=== PATIENT | male | born 1990 | race Caucasian/White ===

== ENCOUNTER 2021-05-03 14:00 | Emergency (ER) | payer OTHER, SELFPAY ==
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
[2021-05-03 14:16] VITALS: BP 149/89; PULSE 91; RESP 20; TEMP 37.7; O2SAT 96
[2021-05-03] MEDS: TETANUS,DIPHTHERIA,AC PERTUSSIS ADULT (0.5 ML) BOOSTRIX IM (14:27)
== END 2021-05-03 14:48 | disposition home or self-care (01) ==
PROVIDERS: Emergency Provider Nurse Practitioner
DX: S71.112A Laceration without foreign body, left thigh, initial encounter (principal); W26.0XXA Contact with knife, initial encounter; Z23 Encounter for immunization
CPT/HCPCS: 12002; 90471; 90715; 99202; G0463

== ENCOUNTER 2022-11-02 14:53 | Emergency (ER) | payer OTHER, SELFPAY ==
[2022-11-02 15:08] VITALS: BP 150/94; PULSE 77; RESP 20; TEMP 36.9; O2SAT 100
--- NOTE | 2022-11-02 15:24 | ED.GENADULT ---
HPI - General Adult General Chief complaint: Urogenital-Male Stated complaint: kidney pain, pos uti Source: patient Mode of arrival: ambulatory Limitations: no limitations History of Present Illness HPI narrative: Patient presents for evaluation of flank pain. He states that he does have bilateral flank pain but right side is very mild. He rates the pain in the left is 3/10 severity. Symptom onset approximately 5 days ago. No radicular component. No abdominal pain. No nausea or vomiting. No dysuria, urinary hesitancy, frequency, urgency, hematuria, or other urinary symptoms. No urethral discharge. No testicular pain or swelling. No personal history of kidney stones. He has several family members who have had kidney stones in the past. No risk for STI per his reports. Related Data Allergies Allergy/AdvReac Type Severity Reaction Status Date / Time No Known Allergies Allergy Verified 11/02/22 15:12 Review of Systems Review of Systems: CONSTITUTIONAL: Denies fever, chills, or sweats. EYES: Denies visual changes, redness, or discharge. ENT: Denies rhinorrhea, congestion, sore throat, or otalgia. CARDIOVASCULAR: Denies chest pain, palpitations, or edema. RESPIRATORY: Denies cough or dyspnea. GASTROINTESTINAL: Denies abdominal pain, nausea, vomiting, or diarrhea. GENITOURINARY: Denies dysuria or hematuria. Reports bilateral flank pain, left greater than the right SKIN: Denies rash or itching. MUSCULOSKELETAL: Denies joint pain or myalgia. NEUROLOGIC: Denies headache, numbness, dizziness, or weakness. PSYCHIATRIC: Denies anxiety or depression. [facility] Past Medical History Medical History Hypertension JULIAN (obstructive sleep apnea) Surgical History Surgical History No pertinent past surgical history Family History Family History Mother JULIAN (obstructive sleep apnea) Social History Social History Smoking status: Never smoker Substance use: never Gender identity (if verbalized by the patient): Male Spiritual care concerns: No Exam Narrative: GENERAL: Well-appearing, well-nourished, and in no acute distress. HEAD: Normocephalic, atraumatic. EYES: PERRLA and EOMI. ENT: Nares clear, no rhinorrhea or epistaxis. Mucous membranes moist. Oropharynx without tonsillar hypertrophy exudate or other lesions. Bilateral TMs pearly ardon nonbulging NECK: Supple. No adenopathy or masses. No carotid bruits or JVD CHEST: Clear to auscultation. No respiratory distress. No wheezes rales or rhonchi HEART: Regular rate and rhythm. No murmur heard. Normal peripheral pulses. ABDOMEN: Soft, nontender, nondistended, normal active bowel sounds. EXTREMITIES: Normal range of motion. No edema BACK: No right-sided CVA tenderness. Mild left-sided CVA tenderness. SKIN: Warm, dry, no rash. NEURO: No focal deficits. Alert and oriented x3. PSYCH: Normal mood and affect. Course Course Emergency Course: This is a 31-year-old male who presented for evaluation of flank pain. He does have microscopic hematuria on urine evaluation today. He is in no apparent distress. Denies any abdominal pain, difficulty with urination, fever, chills, nausea, vomiting. I do have a clinical suspicion that he does have a kidney stone. However do not believe there to be any acute intervention based upon his appearance. I did offer to transfer him to the ER for a CT scan, which she declined. I think that is quite reasonable. I will place him on Flomax and Bactrim. He should follow-up with urology. He should also go to the ER in the event that he develops any intractable pain, vomiting, fever chills. Patient in agreement with plan of care. Level of Care: Express Care Visit Vital Signs Vital signs: Vital Signs
== END 2022-11-02 15:25 | disposition home or self-care (01) ==
PROVIDERS: Emergency Provider Nurse Practitioner
DX: N23 Unspecified renal colic (principal); R31.29 Other microscopic hematuria; I10 Essential (primary) hypertension
CPT/HCPCS: 81003; 99213; G0463